=== PATIENT | female | born 1990 | race Caucasian/White ===

== ENCOUNTER 2016-05-23 17:25 | Inpatient (IN) | payer MEDICAID ==
[2016-05-23] VITALS (18 sets, daily range): BP systolic 94–132; BP diastolic 61–91; PULSE 79–117; TEMP 97.9
[~2016-05-23] VITALS: Ht 154.9 cm; Wt 58.1 kg
[~2016-05-23 17:25] MED LIST: PREN29TA PO; PRIL20CA9 PO
[2016-05-23] MEDS ORDERED: LACTATED RINGER'S 1000 ML INJ 1,000 ML IV PRN (17:56)
--- NOTE | 2016-05-23 17:56 | HHI.HP ---
History & Physical H&P HPI HPI Travel History International Travel<30 Days: No Contact w/Intl Traveler<30Days: No Known Affected Area: No History of Present Illness HPI This patient is a 25-year-old 4 para 1 EDC is May 30, 2016 presently at 39 weeks who presents with a chief complaint of contractions She was seen in [facility] this morning at which time she was 3 cm 80% effaced membranes intact there has been no change Problem list nausea and vomiting early in low-grade SHERRY on Pap positive group B strep baseline blood pressure 103/60 628 pound weight gain during the History (Limited) History Past Medical History Narrative Medical No known drug allergies No major medical problems Obstetric History Obstetric History First baby born March 30, 2014 at 40 weeks female weight 6 lbs. 8 oz. Past Surgical History Surgical History: No Previous Surgery Family History Family History: Negative Social History Alcohol Use: No Tobacco Use: No Substance Abuse: No Allergies-Medications Allergies-Medications (Allergen,Severity, Reaction): Coded Allergies: No Known Allergies (Unverified , 05/23/16) Home Meds Reported Medications Vit-Iron Carbonyl ( Plus Iron 29-1 mg)1 Tab Tab1 Tab PO DAILY #30 TAB Ref 0 03/28/16 Omeprazole (Prilosec)20 Mg Cap20 Mg PO DAILY #30 CAP Ref 0 03/28/16 ROS Review of Systems Gastrointestinal: Abdominal Pain (uterine contractions) Physical Exam Physical Exam Narrative GENERAL: Well-nourished, well-developed patient. Alert oriented 3 and cooperative in moderate distress secondary to uterine contractions CARDIOVASCULAR: Regular rate and rhythm without murmurs, gallops, or rubs. RESPIRATORY: Breath sounds equal bilaterally. No accessory muscle use. ABDOMEN/GI: Gravid term estimated weight of 7 pounds Gravid to [-] weeks size term Fundal Height: [-] GENITOURINARY: External Genitalia: intact and normal in appearance BUS glands: [-] Cervix: [-] Posterior soft Dilatation: [-] 3 cm Effacement: [-] 75% effaced Station: [-] 0 to -1 station Presentation: [-] Vertex Membranes: [intact Uterine Contractions: [-] Irregular FHT's: Category: [-] 1 Baseline: [-] 130 Reactive: [-] + Variability: [-] Moderate Decels: [-] 0 EXTREMITIES: No cyanosis or edema. 2+ reflexes NEUROLOGICAL: Awake and alert. Motor and sensory grossly within normal limits. Five out of 5 muscle strength in all muscle groups. Normal speech. Data Data Data Vital Signs Reviewed: Yes (vital signs stable) MDM MDM Medical Record Reviewed: Yes Interpretation(s) 25-year-old 4 para 1 at 39 weeks Early latent phase Group B strep positive Plan Admit External monitoring IV fluid hydration CBC type and screen Penicillin coverage for group B strep Anticipate vaginal delivery Diagnosis Diagnosis: Primary Impression: Irregular contractions Additional Impressions: 39 weeks gestation of Positive testing for group B Streptococcus Toyin Siddiqui MD May 23, 2016 17:55 Toyin Siddiqui MD May 23, 2016 17:56
[2016-05-23] MEDS ORDERED: MINERAL OIL 10 ML VIAL TOPICAL PRN (18:00)
[2016-05-23] MEDS ORDERED: CITRIC ACID-SODIUM CITRATE LIQ 30 ML UDC PO SCH (18:00)
[2016-05-23] MEDS ORDERED: OXYTOCIN 30 UNITS-500ML PREMIX 500 ML IV ONE (18:00)
[2016-05-23] MEDS ORDERED: LIDOCAINE HCL 1% 50 ML VIAL INFIL PRN (18:00)
[2016-05-23] MEDS ORDERED: LIDOCAINE HCL 1% 50 ML VIAL I-DERMAL PRN (18:00)
[2016-05-23] MEDS ORDERED: PENICILLIN G POTASSIUM INJ 5,000,000 UNITS in SODIUM CHLORIDE 0.9% INJ 100 ML IV ONE (18:00)
[2016-05-23] MEDS ORDERED: SODIUM CHLORID 0.9% 500 ML INJ 500 ML IV PRN (18:00)
[2016-05-23] MEDS: LACTATED RINGER'S 1000 ML INJ 1,000 ML IV SCH ×2 (18:09→22:30)
[2016-05-23] MEDS ORDERED: SODIUM CHLOR 0.9% 1000 ML INJ 1,000 ML IV PRN (18:16)
[2016-05-23 18:23] LABS: AUTOMATED NEUTROPHIL # 12.1 TH/MM3 (1.8-7.7); BASOPHIL % 0.1 % (0.0-2.0); EOSINOPHIL % 0.2 % (0.0-4.0); HEMATOCRIT 35.7 % (35.0-46.0); HEMO FLAGS DIFF FINAL; LYMPH % 11.2 % (9.0-44.0); LYMPHOCYTE # 1.6 TH/MM3 (1.0-4.8); MEAN CELL VOLUME 81.3 FL (80.0-100.0); MEAN CORPUSCULAR HGB CONC 33.3 % (32.0-36.0); MONO % 5.1 % (0.0-8.0); NEUT % 83.4 % (16.0-70.0); PLATELET COUNT 177 TH/MM3 (150-450); RED CELL DISTRIBUTION WIDTH 14.1 % (11.6-17.2); WHITE BLOOD COUNT 14.5 TH/MM3 (4.0-11.0)
[2016-05-23 18:37] LABS: BACTERIA, URINE FEW /hpf; BLOOD, URINE NEG (NEG); COMMENT (UR) CULT NOT INDICATED; CULTURE IF INDICATED CULT NOT INDICATED; GLUCOSE,URINE NEG (NEG); KETONE, URINE NEG (NEG); MUCUS URINE FEW /lpf (OCC); NITRITE,URINE NEG (NEG); PH, URINE 6.5 (5.0-8.5); SQUAMOUS EPITHELIAL CELL URINE 5 /hpf (0-5); URINE COLOR YELLOW (YELLW/STRAW)
[2016-05-23] MEDS ORDERED: PENICILLIN G POTASSIUM INJ 2,500,000 UNITS in SODIUM CHLORIDE 0.9% INJ 100 ML IV SCH (22:00)
[2016-05-23] MEDS ORDERED: fentaNYL 2MCG-BUPIV 0.125% INJ 100 ML ONE (22:23)
--- NOTE | 2016-05-23 23:40 | PD.LABORPN ---
Subjective Subjective Patient comfortable with an epidural Objective Vital Signs Vital Signs Date Time Temp Pulse Resp B/P Pulse Ox O2 Delivery O2 Flow Rate FiO2 05/23/16 23:20 108 05/23/16 23:15 79 117/70 05/23/16 23:00 85 115/66 05/23/16 22:50 95 05/23/16 22:45 88 98/61 05/23/16 22:45 91 05/23/16 22:40 86 05/23/16 22:40 82 117/72 05/23/16 22:36 92 123/82 05/23/16 22:35 83 05/23/16 22:30 99 131/77 05/23/16 22:30 97 05/23/16 22:28 92 132/91 05/23/16 22:00 79 117/77 05/23/16 20:45 97.9 05/23/16 18:20 84 123/83 Objective Pelvic Exam: Cervix: [-] Midline Dilatation: [-] 4 centimeters Effacement: [-] 50% effaced Station: [-] -2 stage Presentation: [-] Vertex Membranes: ruptured] scant fluid Uterine Contractions: [-] Every 3-4 minutes FHT's: Category: [-] 1 Baseline: [-] 140 Reactive: [-] + Variability: [-] Moderate [id number] variability Decels: [-] Toyin Siddiqui MD May 23, 2016 23:40
[2016-05-24] VITALS (15 sets, daily range): BP systolic 102–132; BP diastolic 62–87; PULSE 74–95; RESP 18; TEMP 98.1–98.3
[2016-05-24] MEDS ORDERED: ZOLPIDEM TARTRATE 5 MG TAB PO PRN (01:45)
[2016-05-24] MEDS ORDERED: SODIUM CHLORIDE 0.9% FLUSH 5 ML FLUSH IV PRN (01:45)
[2016-05-24] MEDS ORDERED: BENZOCAINE 20% TOPICAL SPRAY 60 ML CAN TOPICAL PRN (01:45)
[2016-05-24] MEDS ORDERED: ACETAMINOPHEN 325 MG TAB PO PRN (01:45)
[2016-05-24] MEDS ORDERED: WITCH HAZEL 50%/GLYCERIN 12.5% 40 PAD JAR TOPICAL PRN (01:45)
[2016-05-24] MEDS ORDERED: ONDANSETRON ODT 4 MG TAB PO PRN (01:45)
[2016-05-24] MEDS ORDERED: DOCUSATE SODIUM 50 MG/SENNA 8.6 MG TAB PO PRN (01:45)
[2016-05-24] MEDS ORDERED: ALUMINUM/MAGNESIUM/SIMETH 30 ML CUP PO PRN (01:45)
--- NOTE | 2016-05-24 01:47 | PD.OB.DELI ---
Delivery Date: May 24, 2016 Anesthesia: Epidural Episiotomy: None Vaginal Delivery: Normal Presentation: Occiput anterior Nuchal Cord: None : Female One Minute : 8 Five Minute : 9 Weight: 2820 Care: Suctioned Placenta: Spontaneous delivery Laceration: No lacerations Additional Information Patient progressed to completely dilated completely effaced delivered over an intact perineum a viable female infant weight 6 lbs. 3 oz. with Apgars of 8 at 1 minute and 9 at 5 minutes Placenta delivered spontaneously and intact No lacerations Uterus firm Estimated blood loss 300 cc Sponge and instrument count were correct Baby stable mother stable Timeout was done and patient's questions answered Toyin Siddiqui MD May 24, 2016 01:47
[2016-05-24] MEDS: IBUPROFEN 600 MG TAB PO PRN ×3 (07:11→19:34)
--- NOTE | 2016-05-24 07:17 | HHI.OB ---
Subjective Remarks 25 year old PPD 0. Doing well this morning. Lochia is hte amount of a menstrual period. She is breast feeding exclusively. She is a patient of [facility] and plans to follow up there. She plans on depo provera for control. Pain controlled with ibuprofen. She is urinating. No chest pain, shortness of breath, or calf tenderness. Objective Vitals/I&O Vital Signs Date Time Temp Pulse Resp B/P Pulse Ox O2 Delivery O2 Flow Rate FiO2 05/24/16 04:45 98.3 05/24/16 04:45 85 18 102/72 05/24/16 02:30 81 115/80 05/24/16 02:16 82 120/83 05/24/16 02:00 82 132/87 05/24/16 01:46 90 114/75 05/24/16 01:44 89 121/77 05/24/16 01:15 82 105/63 05/24/16 01:09 98.3 18 05/24/16 00:45 93 05/24/16 00:30 95 05/24/16 00:15 95 108/75 05/24/16 00:15 86 05/24/16 00:00 86 103/62 05/24/16 00:00 81 05/23/16 23:55 85 05/23/16 23:50 84 05/23/16 23:45 85 94/71 05/23/16 23:45 117 05/23/16 23:35 97 05/23/16 23:30 83 127/61 05/23/16 23:20 108 05/23/16 23:15 81 05/23/16 23:15 79 117/70 05/23/16 23:00 85 115/66 05/23/16 22:50 95 05/23/16 22:45 88 98/61 05/23/16 22:45 91 05/23/16 22:45 18 05/23/16 22:40 86 05/23/16 22:40 82 117/72 05/23/16 22:36 92 123/82 05/23/16 22:35 83 05/23/16 22:30 99 131/77 05/23/16 22:30 97 05/23/16 22:28 92 132/91 05/23/16 22:00 79 117/77 05/23/16 20:45 97.9 05/23/16 18:20 84 123/83 Objective Remarks GENERAL: Well-nourished, well-developed patient. CARDIOVASCULAR: Regular rate and rhythm without murmurs, gallops, or rubs. RESPIRATORY: Breath sounds equal bilaterally. No accessory muscle use. ABDOMEN/GI: Abdomen soft, non-tender. Fundus: Firm, non-tender at umbilicus. GENITOURINARY: Light to moderate bleeding. EXTREMITIES: No cyanosis or edema, non-tender, without signs of DVT. Medications and IVs Current Medications Medications (Trade) Dose Ordered Sig/Lucretia Route Start Time Stop Time Status Last Admin (NS Flush) 2 ml BID IV 05/24/16 09:00 (NS Flush) 2 ml UNSCH PRN IV 05/24/16 01:45 (Tylenol) 650 mg Q4H PRN PO 05/24/16 01:45 (Motrin) 600 mg Q6H PRN PO 05/24/16 01:45 05/24/16 07:11 (Americaine 20% Top Spr) 1 spray Q4H PRN TOPICAL 05/24/16 01:45 (Tucks Pads) 1 applic QID PRN TOPICAL 05/24/16 01:45 (Indira-Colace) 2 tab Q12H PRN PO 05/24/16 01:45 (Ambien) 5 mg HS PRN PO 05/24/16 01:45 (M-M-R Ii Inj) 0.5 ml ONCE ONCE SQ 05/24/16 16:00 05/24/16 16:01 (Boostrix Inj) 0.5 ml ONCE ONCE IM 05/24/16 16:00 05/24/16 16:01 (Mag-Al Plus Susp Liq) 15 ml Q8H PRN PO 05/24/16 01:45 (Zofran Odt) 4 mg Q6H PRN PO 05/24/16 01:45 Assessment/Plan Assessment and Plan 25 year old PPD 0. - Encourage exclusive . - Ibuprofen for pain control. - Encourage ambulation. - Monitor lochia. - Pelvic rest - Follow up with OB in 6 weeks - Anticipate discharge tomorrow or the next day. Discuss with Russell Fraga MD R2 May 24, 2016 07:17
[2016-05-24] MEDS ORDERED: SODIUM CHLORIDE 0.9% FLUSH 5 ML FLUSH IV SCH (09:00)
[2016-05-24] MEDS ORDERED: oxyCODONE/ACETAMINOPHEN 5 MG/325 MG TAB PO PRN ×2 (13:45)
[2016-05-24] MEDS ORDERED: DIPHTH/TETANUS/ACEL PERTUSSIS (BOOSTER) 0.5 ML VIAL/PFS IM ONE (16:00)
[2016-05-24] MEDS ORDERED: MEASLES, MUMPS, RUBELLA VACCINE 0.5 ML VIAL SQ ONE (16:00)
[2016-05-25] MEDS: IBUPROFEN 600 MG TAB PO PRN (05:39)
--- NOTE | 2016-05-25 07:16 | HHI.OB ---
Subjective Post Day: 1 Remarks day #1. AFVSS overnight. Pain minimal. Decreased lochia. Denies dysuria. No breast tenderness. She is feeding the baby via breast. Appetite good. No nausea or vomiting. Endorses flatus. Endorses bowel movement. Ambulating well. Denies calf pain, shortness of breath, or cough. Otherwise, she is doing well this morning and has no other complaints. (Nabeel Pal MD R1) Objective Vitals/I&O Vital Signs Date Time Temp Pulse Resp B/P Pulse Ox O2 Delivery O2 Flow Rate FiO2 05/24/16 19:40 98.3 18 05/24/16 19:39 84 104/67 05/24/16 08:05 98.1 74 18 108/75 Objective Remarks GENERAL: Well-nourished, well-developed patient. CARDIOVASCULAR: Regular rate and rhythm without murmurs, gallops, or rubs. RESPIRATORY: Breath sounds equal bilaterally. No accessory muscle use. ABDOMEN/GI: Abdomen soft, non-tender. Fundus: Firm, non-tender at umbilicus. GENITOURINARY: Light to moderate bleeding. EXTREMITIES: No cyanosis or edema, non-tender, without signs of DVT. Medications and IVs Current Medications Medications (Trade) Dose Ordered Sig/Lucretia Route Start Time Stop Time Status Last Admin (NS Flush) 2 ml BID IV 05/24/16 09:00 (NS Flush) 2 ml UNSCH PRN IV 05/24/16 01:45 (Tylenol) 650 mg Q4H PRN PO 05/24/16 01:45 (Motrin) 600 mg Q6H PRN PO 05/24/16 01:45 05/25/16 05:39 (Americaine 20% Top Spr) 1 spray Q4H PRN TOPICAL 05/24/16 01:45 (Tucks Pads) 1 applic QID PRN TOPICAL 05/24/16 01:45 (Indira-Colace) 2 tab Q12H PRN PO 05/24/16 01:45 (Ambien) 5 mg HS PRN PO 05/24/16 01:45 (Mag-Al Plus Susp Liq) 15 ml Q8H PRN PO 05/24/16 01:45 (Zofran Odt) 4 mg Q6H PRN PO 05/24/16 01:45 (Percocet 5-325 Mg) 1 tab Q4H PRN PO 05/24/16 13:45 05/24/16 13:59 (Percocet 5-325 Mg) 2 tab Q4H PRN PO 05/24/16 13:45 (Nabeel Pal MD R1) Assessment/Plan Assessment and Plan 25 year old PPD 1. - Encourage exclusive . - Ibuprofen for pain control. - Encourage ambulation. - Monitor lochia. - Pelvic rest - Plans on Depo for control - Follow up with OB in 6 weeks - Anticipate discharge tomorrow dw OB attending (Nabeel Pal MD R1) Attending Attestation Patient seen and examined with the resident under direct supervision, I agree with the assessment and plan. (Castillo Martins MD) Nabeel Pal MD R1 May 25, 2016 07:16 Castillo Martins MD May 25, 2016 10:16
--- NOTE | 2016-05-25 12:46 | HHI.DCPOC ---
Discharge Care Plan Diagnosis: (1) (normal spontaneous vaginal delivery) Goals to Promote Your Health * To prevent worsening of your condition and complications * To maintain your health at the optimal level Directions to Meet Your Goals Take your medications as prescribed Follow your dietary instruction Follow activity as directed Keep your appointments as scheduled Take your immunizations and boosters as scheduled If your symptoms worsen call your PCP, if no PCP go to Urgent Care Center or Emergency Room Smoking is Dangerous to Your Health. Avoid second hand smoke Call the 24-hour hour crisis hotline for domestic abuse at Attestation Patient seen and examined with the resident under direct supervision, I agree with the assessment and plan. Nabeel Pal MD R1 May 25, 2016 12:46 Castillo Martins MD May 26, 2016 14:37
[2016-05-25] MEDS ORDERED: IBUP-232 PO (12:48)
[2016-05-25] MEDS ORDERED: SENN1TAB PO (12:48)
[2016-06-07] MEDS ORDERED: IBUP-232 PO (14:11)
[2016-07-06] MEDS ORDERED: MEDR150I IM (10:43)
[2016-07-09] MEDS ORDERED: DEPO150I IM (10:39)
== END 2016-05-25 13:48 | disposition home or self-care (01) | DRG 775 ==
LOC: HOBED 17:25 → H2EA 18:06 → H1EA 05-24 03:55
PROVIDERS: ADMIT Obstetrics & Gynecology; ATTEND Obstetrics & Gynecology
PROC: 3E0S3CZ (ICD-10-PCS; 2016-05-23)
PROC: 00HU33Z Insertion of Infusion Device into Spinal Canal, Percutaneous Approach (ICD-10-PCS; 2016-05-23)
PROC: 10E0XZZ Delivery of Products of Conception, External Approach (ICD-10-PCS; principal; 2016-05-24)
DX: O99.824 Streptococcus B carrier state complicating childbirth (principal); Z37.0 Single live birth; Z3A.39 39 weeks gestation of pregnancy
CPT/HCPCS: 81001; 85025; 90715; 99285; J2540; J2590; J7120